=== PATIENT | female | born 1955 | race Caucasian/White ===

== ENCOUNTER 2017-10-27 16:08 | Inpatient (IN) | payer SELFPAY ==
[2017-10-27 16:58] VITALS: BMI 37.2
[2017-10-27 17:34] LABS: Basophils % 0.2 % (0.1-2.0); Eosinophils % 0.3 % (0.1-12.0); Hematocrit 44.2 % (37.0-47.0); Hemoglobin 14.2 g/dL (12.2-16.2); Lymphocytes # 0.6 K/mm3 (0.7-4.5); Lymphocytes % 6.9 K/mm3 (10-50); Mean Corpuscular HGB Conc 32.1 g/dL (31.8-35.4); Mean Corpuscular Hemoglobin 30.3 pg (27.0-31.2); Mean Corpuscular Volume 94.4 fl (81-99); Mean Platelet Volume 10.3 fl (7.4-10.4); Monocytes # 0.4 K/mm3 (0.1-1.0); Monocytes % 4.4 % (1.7-9.3); Neutrophils # 8.2 K/mm3 (1.8-7.8); Neutrophils % 88.2 % (37.0-80.0); Platelet Count 129 K/mm3 (142-424); Red Blood Count 4.69 M/mm3 (4.20-5.40); Red Cell Distribution Width 12.9 % (11.5-17.5); White Blood Count 9.3 K/mm3 (4.8-10.8)
[2017-10-27 17:36] LABS: MANUAL DIFFERENTIAL MANUAL DIFFERENTIAL (MANUAL DIFF)
[2017-10-27 17:48] LABS: Alanine Aminotransferase 18 U/L (12-78); Albumin Level 3.3 gm/dL (3.4-5.0); Albumin/Globulin Ratio 0.8 (1.1-1.8); Alkaline Phosphatase 46 U/L (46-116); Aspartate Amino Transferase 18 U/L (15-37); Bilirubin,Total 0.8 mg/dL (0.2-1.0); Blood Urea Nitrogen 19 mg/dL (7-18); Carbon Dioxide 31 mmol/L (21.0-32.0); Chloride 96 mmol/L (98-107); Creatinine Clearance Estimated 39 mg/ml (0-300); Estimated Glomerular Filt Rate 28 ml/min (>60); GFR (African American) 34 ML/MIN (>60); Globulin 3.9 gm/dl (1.3-3.2); Glucose 395 mg/dL (74-106); Sodium 133 mmol/L (136-145); Total Protein,Serum 7.2 gm/dL (6.4-8.2)
[2017-10-27 18:21] LABS: Lymphocytes % 6 % (10-50); Monocytes % 3 % (2-9); Neutrophils % 91 % (42-76); Total Cells Counted 100
[2017-10-27 18:22] LABS: Platelet Estimate Normal
[2017-10-27 18:23] LABS: RBC Morphology Normal
[2017-10-27 18:33] VITALS: BP 83/50; PULSE 91; RESP 16; TEMP 36.8; O2SAT 94
--- NOTE | 2017-10-27 18:51 | PC.NURSE ---
spoke with dr nelson who said give a 2 l bolus of ns and after switch to 150ml/hr of ns
[2017-10-27 20:15] VITALS: O2SAT 100
[2017-10-27 20:29] VITALS: BP 122/74; PULSE 100; RESP 18; TEMP 36.6; O2SAT 100
[2017-10-27 23:12] LABS: Adenovirus,PCR Not Detected (NotDetected); Bordetella Pertussis Not Detected (NotDetected); Chlamydophila Pneumoniae, PCR Not Detected (NotDetected); Coronavirus 229E Not Detected (NotDetected); Coronavirus NL63 Not Detected (NotDetected); Coronavirus OC43 Not Detected (NotDetected); Coronovirus HKU1,PCR Not Detected (NotDetected); Human Metapneumovirus Not Detected (NotDetected); Influenza A, PCR Not Detected (NotDetected); Influenza AH1, 2009 Not Detected (NotDetected); Influenza AH1, PCR Not Detected (NotDetected); Influenza AH3,PCR Not Detected (NotDetected); Influenza B, PCR Not Detected (NotDetected); Mycoplasma Pneumoniae, PCR Not Detected (NotDected); Parainfluenza 1, PCR Not Detected (NotDetected); Parainfluenza 2, PCR Not Detected (NotDetected); Parainfluenza 3, PCR Not Detected (NotDetected); Parainfluenza 4, PCR Not Detected (NotDetected); Respiratory Syncytial Virus Not Detected (NotDetected); Rhinovirus/Enterovirus Not Detected (NotDetected)
[2017-10-28 00:36] VITALS: BP 85/40; PULSE 108; RESP 20; TEMP 37.1; O2SAT 97
[2017-10-28 04:00] VITALS: BP 114/64; PULSE 96; RESP 18; TEMP 36.7; O2SAT 95
--- NOTE | 2017-10-28 05:12 | PC.NURSE ---
PT HAS BEEN SLEEPING MOST OF SHIFT. TEMP HAS RETURNED TO BASELINE FROM PRIOR ELEVATED TEMPS EARLY IN SHIFT. MD WAS NOTIFIED OF PT CONDITION EARLY IN SHIFT. PCR AND MEDICATION WAS ORDERED AND ADMINISTERED PER DEC. PCR RETURNED NEGATIVE. PT IS AFEBRILE AT THIS TIME. OTHER V/S HAVE IMPROVED. B/P IS 114/64. NO OTHER COCNERNS AT THIS TIME. WILL CONTINUE TO MONITOR.
--- NOTE | 2017-10-28 07:22 | XR_ITS ---
XR chest 2V HISTORY: ITS.REASON: Fever ORDERING PHYSICIAN: Cory Terrazas MD PATIENT AGE: 62 years COMPARISON: None available FINDINGS: The cardiomediastinal silhouette and pulmonary vascularity are within normal limits. There is patchy density in the lingula consistent with an area of atelectasis or infiltrate.. There is minimal blunting of left CP angle. A 3.87 m calcified granuloma is present in the right middle lobe. Degenerative change thoracic spine. IMPRESSION: Atelectasis and/or infiltrate in the lingula with small left effusion
--- NOTE | 2017-10-28 07:24 | HMH.ACPN ---
Internal Medicine - PN: Subj *Date: 10/28/17 *Time: 07:24 Interval history: Patient spiked a temperature to 103? through the night last night, upper respiratory PCR testing was done which was negative, I empirically gave her a dose of Tamiflu because of her son-in-law's diagnosis in my office earlier yesterday morning. This morning she denies complaints of urine problems, denies cough, continues to be nauseated but without actual vomiting. No diarrhea. Labs this morning are pending. Exam Vital signs and Labs for Last 24 Hours: Temp Pulse Resp BP Pulse Ox 98.1 F 96 H 18 114/64 95 10/28/17 04:00 10/28/17 04:00 10/28/17 04:00 10/28/17 04:00 10/28/17 04:00 Short CBC 10/27/17 Range/Units 17:27 WBC 9.3 (4.8-10.8) K/mm3 Hgb 14.2 (12.2-16.2) g/dL Hct 44.2 (37.0-47.0) % Plt Count 129 L (142-424) K/mm3 BMP 10/27/17 17:27 Sodium 133 L Potassium 4.0 Chloride 96 L Carbon Dioxide 31 BUN 19 H Creatinine 1.80 H Glucose 395 H Calcium 9.0 Liver Function 10/27/17 Range/Units 17:27 Total Bilirubin 0.8 (0.2-1.0) mg/dL AST 18 (15-37) U/L ALT 18 (12-78) U/L Alkaline Phosphatase 46 (46-116) U/L Albumin 3.3 L (3.4-5.0) gm/dL I & O for Last 24 hours: Intake & Output 10/25/17 10/26/17 10/27/17 10/28/17 11:59 11:59 11:59 11:59 Intake Total 3858 / 3858 Balance 3858 / 3858 Narrative: Vision is alert, pleasant, oropharynx clear, lungs are clear, abdomen soft, nontender, she looks much better hydrated. No skin turgor issues, no perfusion deficits. Heart rate regular without murmurs. Assessment and Plan (1) Orthostatic hypotension Current visit: Yes Status: Acute Category: Medical Code(s): I95.1 - Orthostatic hypotension (2) Diabetes mellitus type 2, noninsulin dependent Current visit: Yes Status: Acute Category: Medical Code(s): E11.9 - Type 2 diabetes mellitus without complications (3) Dehydration Current visit: Yes Status: Acute Category: Medical Code(s): E86.0 - Dehydration (4) Viral gastroenteritis Current visit: Yes Status: Acute Category: Medical Code(s): A08.4 - Viral intestinal infection, unspecified - Assessment and plan all Dx Assessment and Plan for all problems:: Patient is improving. I will discontinue Tamiflu as PCR testing was negative. Chest x-ray to further evaluate fever. I think she has a clinical picture consistent with gastroenteritis that is improving. Advance diet. Follow-up labs this morning. Possible discharge tomorrow.
[2017-10-28 08:00] VITALS: BP 106/65; PULSE 97; RESP 18; TEMP 36.9; O2SAT 93; O2SAT 96
--- NOTE | 2017-10-28 08:42 | PC.NURSE ---
MAO HANDED OFF TO PATEL JUNG
[2017-10-28 08:55] LABS: POC Glucose,Bedside 243 mg/dL
[2017-10-28 08:55] LABS: POC Glucose,Bedside 286 mg/dL
[2017-10-28 08:58] LABS: Basophils % 0.3 % (0.1-2.0); Eosinophils % 0.5 % (0.1-12.0); Hematocrit 39.6 % (37.0-47.0); Lymphocytes # 0.6 K/mm3 (0.7-4.5); Lymphocytes % 7.9 K/mm3 (10-50); Mean Corpuscular HGB Conc 32.1 g/dL (31.8-35.4); Mean Corpuscular Volume 93.2 fl (81-99); Mean Platelet Volume 10.1 fl (7.4-10.4); Monocytes # 0.4 K/mm3 (0.1-1.0); Monocytes % 5.1 % (1.7-9.3); Neutrophils # 6.4 K/mm3 (1.8-7.8); Neutrophils % 86.3 % (37.0-80.0); Platelet Count 96 K/mm3 (142-424); Red Blood Count 4.25 M/mm3 (4.20-5.40); Red Cell Distribution Width 12.9 % (11.5-17.5); White Blood Count 7.4 K/mm3 (4.8-10.8)
[2017-10-28 09:18] LABS: Hemoglobin 12.7 g/dL (12.2-16.2); MANUAL DIFFERENTIAL MANUAL DIFFERENTIAL (MANUAL DIFF)
[2017-10-28 10:25] LABS: Eosinophils % 1 % (0-3); Lymphocytes % 9 % (10-50); Monocytes % 3 % (2-9); Neutrophils % 87 % (42-76); Platelet Estimate Moderate Decrease; Total Cells Counted 100
[2017-10-28 10:26] LABS: RBC Morphology Normal
--- NOTE | 2017-10-28 10:35 | P.CONPHA_ITS ---
[facility] VTE Monitoring - Patient Demographics Admission date: 10/27/17 Report Date: 10/28/17 Time: 10:34 Allergies/Adverse Reactions: No Known Allergies Allergy (Verified 10/27/17 17:22) Height: 1.45 m Weight: 79.4 kg Patient Problems: Current Active Problems Orthostatic hypotension (Acute) Diabetes mellitus type 2, noninsulin dependent (Acute) Dehydration (Acute) Viral gastroenteritis (Acute) - VTE Risk Labs: VTE Related Lab Results Hgb 12.7 g/dL (12.2-16.2) D 10/28/17 07:52 Hct 39.6 % (37.0-47.0) 10/28/17 07:52 Plt Count 96 K/mm3 (142-424) L D 10/28/17 07:52 BUN 19 mg/dL (7-18) H 10/27/17 17:27 Creatinine 1.80 mg/dL (0.55-1.02) H 10/27/17 17:27 Estimated Creat Clear 39 mg/ml (0-300) 10/27/17 17:27 Clinical Trial Participant: No - Prophylaxis Types of VTE Prophylaxis: TEDS Knee High Location of Applied Device: Bilateral Lower Extremeties
--- NOTE | 2017-10-28 10:47 | CARE MANAGER ---
MS HELM WAS ADMITTED WITH DEHYDRATION AND HAS BEEN EXPOSED TO THE FLU. SHE IS BEING TREATED WITH IVF'S,SERIAL LABS AND ,MONITORING. CM STAFF WILL CONTINUES TO MONITOR AND ASSIST NEEDED.
[2017-10-28 12:30] LABS: POC Glucose,Bedside 213 mg/dL
[2017-10-28 16:00] VITALS: BP 130/62; PULSE 114; RESP 18; TEMP 38; O2SAT 94
[2017-10-28 17:45] LABS: POC Glucose,Bedside 160 mg/dL
[2017-10-28 20:00] VITALS: PULSE 101; O2SAT 95
[2017-10-28 20:26] VITALS: BP 110/52; PULSE 101; RESP 18; TEMP 36.9; O2SAT 95
[2017-10-28 21:26] LABS: POC Glucose,Bedside 286 mg/dL
--- NOTE | 2017-10-29 03:54 | PC.NURSE ---
PT HAS BEEN UP TO CHAIR THIS SHIFT AND HAS AMBULATED TO THE BATHROOM WITH LESS FATIGUE. PT DENIES ANY DISCOMFORT. SHE ALSO DENIES ANY NAUSEA. PT STATED THAT SHE HASN'T HAD ANY NAUSEA SINCE YESTERDAY MORNING. B/P HAS BEEN STABLE. HR CONTINUES TO BE TACHY.FSBS WAS 286 DURING PM. PT WAS ADMINISTERED 10 UNITS OF INSULIN PER MAR AND PROVIDED A SNACK. NS CONTINUES TO INFUSE AT 150 ML/HR. LUNGS ARE CLEAR BUT DIMINISHED. BS ARE HYPO. PT AND DAUGHTER STATES SHE HASNT HAD A BM FOR A COUPLE OF DAYS, BUT ALSO STATED THAT SHE HASN'T ATE WELL. NO OTHER CONCERNS NOTED AT THIS TIME. WILL CONTINUE TO MONITOR.
[2017-10-29 04:00] VITALS: BP 106/67; PULSE 107; RESP 18; TEMP 36.8; O2SAT 93
[2017-10-29 06:04] LABS: Alanine Aminotransferase 15 U/L (12-78); Albumin Level 2.4 gm/dL (3.4-5.0); Albumin/Globulin Ratio 0.7 (1.1-1.8); Alkaline Phosphatase 42 U/L (46-116); Aspartate Amino Transferase 15 U/L (15-37); Bilirubin,Total 0.6 mg/dL (0.2-1.0); Blood Urea Nitrogen 4 mg/dL (7-18); Carbon Dioxide 28 mmol/L (21.0-32.0); Chloride 101 mmol/L (98-107); Creatinine Clearance Estimated 74 mg/ml (0-300); Creatinine,Serum 0.53 mg/dL (0.55-1.02); Estimated Glomerular Filt Rate > 60 ml/min (>60); GFR (African American) > 60 ML/MIN (>60); Globulin 3.6 gm/dl (1.3-3.2); Glucose 285 mg/dL (74-106); Sodium 134 mmol/L (136-145)
[2017-10-29 06:38] LABS: Calcium 7.5 mg/dL (8.5-10.1)
[2017-10-29 06:51] LABS: POC Glucose,Bedside 265 mg/dL
--- NOTE | 2017-10-29 07:45 | PC.NURSE ---
PT REPORT HANDOFF TO DAMASO PEÑA
--- NOTE | 2017-10-29 07:53 | HMH.DCSUM ---
General - General Admission date: 10/27/17 Discharge date: 10/29/17 HPI HPI: 62-year-old female, type II diabetic, came to my office on the day of admission with weakness and one episode of vomiting with persistent nausea. In the office she was found to be orthostatic, with blood pressures in the low 60 range and tachycardic at 120 and clinically dehydrated. Admitted to hospital for further diagnostic testing, IV fluids and laboratory evaluation. Please see my H&P for details. Objective Vital signs: Temp Pulse Resp BP Pulse Ox 98.3 F 107 H 18 106/67 93 L 10/29/17 04:00 10/29/17 04:00 10/29/17 04:00 10/29/17 04:00 10/29/17 04:00 Hospital Course Hospital Course: She was admitted to hospital, placed on IV fluids and tolerated this well, felt much better after 2 L normal saline bolus, began to urinate, blood pressure improved. Her home medications were held. She was found to be mildly hypokalemic and this was replaced in the hospital. She did spike a temperature, chest x-ray was done which was clear, she was empirically placed on Tamiflu because of her son-in-law's recent diagnosis of influenza however her PCR testing was negative and this was discontinued. This morning she did well, had no further fevers, sitting up on the side of the bed, eating breakfast. Has been able to walk around the room with no dizziness or orthostatic symptoms. Exam reveals clear lungs, moist oropharynx, regular heart rate, regular blood pressure and no edema. We discharged home today, oral potassium will be added to her regimen. She will begin her regular medications tomorrow. I will see her in my office on Wednesday. Results Labs on day of discharge: Labs from last 24 hours 10/29/17 10/29/17 10/28/17 06:35 05:40 21:08 WBC RBC Hgb Hct MCV MCH MCHC RDW Plt Count MPV Neut % (Auto) Lymph % (Auto) [place] % (Auto) Eos % (Auto) Baso % (Auto) Neut # (Auto) Lymph # (Auto) [place] # (Auto) Eos # (Auto) Baso # (Auto) Total Counted Neutrophils % (Manual) Lymphocytes % (Manual) Monocytes % (Manual) Eosinophils % (Manual) Platelet Estimate RBC Morphology Sodium 134 L Potassium 3.0 L D Chloride 101 Carbon Dioxide 28 Anion Gap 8.0 BUN 4 L D Creatinine 0.53 L D Estimated Creat Clear 74 Estimated GFR > 60 Est GFR ( Amer) > 60 D Glucose 285 H POC Glucose 265 286 Calcium 7.5 L D Total Bilirubin 0.6 AST 15 ALT 15 Alkaline Phosphatase 42 L Total Protein 6.0 L Albumin 2.4 L Globulin 3.6 H Albumin/Globulin Ratio 0.7 L 10/28/17 10/28/17 10/28/17 17:37 12:23 07:52 WBC 7.4 RBC 4.25 Hgb 12.7 D Hct 39.6 MCV 93.2 MCH 30.0 MCHC 32.1 RDW 12.9 Plt Count 96 L D MPV 10.1 Neut % (Auto) 86.3 H Lymph % (Auto) 7.9 L [place] % (Auto) 5.1 Eos % (Auto) 0.5 Baso % (Auto) 0.3 Neut # (Auto) 6.4 Lymph # (Auto) 0.6 L [place] # (Auto) 0.4 Eos # (Auto) 0.0 Baso # (Auto) 0.0 Total Counted 100 Neutrophils % (Manual) 87 H Lymphocytes % (Manual) 9 L Monocytes % (Manual) 3 Eosinophils % (Manual) 1 Platelet Estimate Moderate decrease RBC Morphology Normal Sodium Potassium Chloride Carbon Dioxide Anion Gap BUN Creatinine Estimated Creat Clear Estimated GFR Est GFR ( Amer) Glucose POC Glucose 160 213 Calcium Total Bilirubin AST ALT Alkaline Phosphatase Total Protein Albumin Globulin Albumin/Globulin Ratio 10/28/17 10/27/17 07:06 20:16 WBC RBC Hgb Hct MCV MCH MCHC RDW Plt Count MPV Neut % (Auto) Lymph % (Auto) [place] % (Auto) Eos % (Auto) Baso % (Auto) Neut # (Auto) Lymph # (Auto) [place] # (Auto) Eos # (Auto) Baso # (Auto) Total Counted Neutrophils %
--- NOTE | 2017-10-29 07:56 | P.DS_ITS ---
General - General Admission date: 10/27/17 Discharge date: 10/29/17 HPI HPI: 62-year-old female, type II diabetic, came to my office on the day of admission with weakness and one episode of vomiting with persistent nausea. In the office she was found to be orthostatic, with blood pressures in the low 60 range and tachycardic at 120 and clinically dehydrated. Admitted to hospital for further diagnostic testing, IV fluids and laboratory evaluation. Please see my H&P for details. Objective Vital signs: Temp Pulse Resp BP Pulse Ox 98.3 F 107 H 18 106/67 93 L 10/29/17 04:00 10/29/17 04:00 10/29/17 04:00 10/29/17 04:00 10/29/17 04:00 Hospital Course Hospital Course: She was admitted to hospital, placed on IV fluids and tolerated this well, felt much better after 2 L normal saline bolus, began to urinate, blood pressure improved. Her home medications were held. She was found to be mildly hypokalemic and this was replaced in the hospital. She did spike a temperature, chest x-ray was done which was clear, she was empirically placed on Tamiflu because of her son-in-law's recent diagnosis of influenza however her PCR testing was negative and this was discontinued. This morning she did well, had no further fevers, sitting up on the side of the bed, eating breakfast. Has been able to walk around the room with no dizziness or orthostatic symptoms. Exam reveals clear lungs, moist oropharynx, regular heart rate, regular blood pressure and no edema. We discharged home today, oral potassium will be added to her regimen. She will begin her regular medications tomorrow. I will see her in my office on Wednesday. Results Labs on day of discharge: Labs from last 24 hours 10/29/17 10/29/17 10/28/17 06:35 05:40 21:08 WBC RBC Hgb Hct MCV MCH MCHC RDW Plt Count MPV Neut % (Auto) Lymph % (Auto) [place] % (Auto) Eos % (Auto) Baso % (Auto) Neut # (Auto) Lymph # (Auto) [place] # (Auto) Eos # (Auto) Baso # (Auto) Total Counted Neutrophils % (Manual) Lymphocytes % (Manual) Monocytes % (Manual) Eosinophils % (Manual) Platelet Estimate RBC Morphology Sodium 134 L Potassium 3.0 L D Chloride 101 Carbon Dioxide 28 Anion Gap 8.0 BUN 4 L D Creatinine 0.53 L D Estimated Creat Clear 74 Estimated GFR > 60 Est GFR ( Amer) > 60 D Glucose 285 H POC Glucose 265 286 Calcium 7.5 L D Total Bilirubin 0.6 AST 15 ALT 15 Alkaline Phosphatase 42 L Total Protein 6.0 L Albumin 2.4 L Globulin 3.6 H Albumin/Globulin Ratio 0.7 L 10/28/17 10/28/17 10/28/17 17:37 12:23 07:52 WBC 7.4 RBC 4.25 Hgb 12.7 D Hct 39.6 MCV 93.2 MCH 30.0 MCHC 32.1 RDW 12.9 Plt Count 96 L D MPV 10.1 Neut % (Auto) 86.3 H Lymph % (Auto) 7.9 L [place] % (Auto) 5.1 Eos % (Auto) 0.5
[2017-10-29 08:00] VITALS: BP 121/70; PULSE 114; RESP 20; TEMP 36.8; O2SAT 96
--- NOTE | 2017-10-29 11:22 | CARE MANAGER ---
MS MATAMELITABilly IS DISCHARGING HOME WITH AFTERCARE INSTRUCTIONS.
== END 2017-10-29 09:00 | disposition home or self-care (01) | DRG 641 ==
PROVIDERS: Admitting Provider Internal Medicine Adolescent Medicine; PCP Internal Medicine Adolescent Medicine; Visit Provider Internal Medicine Adolescent Medicine
DX: E87.6 Hypokalemia (principal); E86.0 Dehydration; A08.4 Viral intestinal infection, unspecified; E11.9 Type 2 diabetes mellitus without complications; I95.1 Orthostatic hypotension
CPT/HCPCS: 36415; 71046; 80053; 82962; 85007; 85025; 87486; 87581; 87633; 87798; 93005; J2405

== ENCOUNTER → 2021-08-26 12:43 | Outpatient (CLI) | payer SELFPAY ==
[2021-08-26 13:18] LABS: Basophils % 0.3 % (0.1-2.0); Eosinophils # 0.1 K/mm3 (0.0-0.4); Hematocrit 35.8 % (37.0-47.0); Hemoglobin 12.2 g/dL (12.2-16.2); Lymphocytes % 18.4 % (10-50); Mean Corpuscular HGB Conc 34.2 g/dL (31.8-35.4); Mean Corpuscular Hemoglobin 30.8 pg (27.0-31.2); Mean Corpuscular Volume 89.9 fl (81-99); Mean Platelet Volume 10.1 fl (7.4-10.4); Monocytes # 0.3 K/mm3 (0.1-1.0); Monocytes % 4.7 % (1.7-9.3); Neutrophils # 4.2 K/mm3 (1.8-7.8); Neutrophils % 74.7 % (37.0-80.0); Platelet Count 120 K/mm3 (142-424); Red Blood Count 3.98 M/mm3 (4.20-5.40); Red Cell Distribution Width 14.3 % (11.5-17.5); White Blood Count 5.7 K/mm3 (4.8-10.8)
[2021-08-26 13:36] LABS: Chloride 99 mmol/L (98-107); Sodium 135 mmol/L (136-145)
[2021-08-26 13:38] LABS: Alanine Aminotransferase 12 U/L (12-78); Alkaline Phosphatase 60 U/L (38-126); Aspartate Amino Transferase 20 U/L (14-36); Bilirubin,Total 0.6 mg/dl (0.2-1.3); Blood Urea Nitrogen 21 mg/dl (7-17); Carbon Dioxide 30 mmol/L (22.0-30.0); Estimated Glomerular Filt Rate 72 ml/min (>60); GFR (African American) 87 ML/MIN (>60)
[2021-08-26 13:39] LABS: Albumin Level 3.7 g/dl (3.5-5.0); Albumin/Globulin Ratio 1.3 (1.1-1.8); Globulin 2.9 g/dL (1.3-3.2); Glucose 276 mg/dl (74-100); Total Protein,Serum 6.6 g/dl (6.3-8.2)
[2021-08-26 21:43] LABS: Hemoglobin A1C 9.1 % (4.0-6.0)
== END ==
PROVIDERS: Visit Provider Internal Medicine Adolescent Medicine
DX: E11.9 Type 2 diabetes mellitus without complications (principal); L40.9 Psoriasis, unspecified; Z79.84 Long term (current) use of oral hypoglycemic drugs
CPT/HCPCS: 36415; 80053; 83036; 85025